=== PATIENT | male | born 1950 | race Caucasian/White ===

== ENCOUNTER 2022-06-02 14:33 | Emergency (ER) | payer MEDICARE, OTHER ==
[~2022-06-02] VITALS: Ht 188 cm; Wt 84.1 kg
[2022-06-02 14:37] VITALS: BP 132/75
[2022-06-02 15:32] LABS: BASOPHILS % (AUTO) 0.8 % (0-1); EOSINOPHILS # (AUTO) 0.6 X10'3 (0-0.9); EOSINOPHILS % (AUTO) 11.4 % (0-6); HEMATOCRIT 39.2 % (42.0-52.0); HEMOGLOBIN 13.2 g/dl (14.0-17.9); LYMPHOCYTES # (AUTO) 1.3 X10'3 (1.1-4.8); MEAN CORPUSCULAR HGB CONC 33.8 g/dL (33.0-36.5); MEAN CORPUSCULAR VOLUME 94.8 FL (78-98); MEAN PLATELET VOLUME 7.2 FL (7.4-10.4); MONOCYTES # (AUTO) 0.4 X10'3 (0-0.9); MONOCYTES % (AUTO) 6.9 % (2-12); NEUTROPHILS # (AUTO) 3.1 X10'3 (1.8-7.7); NEUTROPHILS % (AUTO) 56.9 % (42-75); PLATELET COUNT 184 X10'3 (140-440); RED BLOOD COUNT 4.14 X10'6 (4.70-6.10); RED CELL DISTRIBUTION WIDTH 14.3 % (11.5-14.5); WHITE BLOOD COUNT 5.5 X10'3 (4.5-11.0)
[2022-06-02 15:45] LABS: ALANINE AMINOTRANSFERASE 10 U/L (12-78); ALBUMIN 3.6 G/DL (3.4-5.0); ALBUMIN/GLOBULIN RATIO 1.1 (1.1-1.5); ALKALINE PHOSPHATASE 106 IU/L (46-116); ANION GAP 6 (8-16); ASPARTATE AMINO TRANSFERASE 22 U/L (10-37); BILIRUBIN,TOTAL 0.5 MG/DL (0.1-1.0); BLOOD UREA NITROGEN 28 MG/DL (7-18); BUN/CREATININE RATIO 27.5 (5.4-32.0); CALCIUM 8.7 MG/DL (8.5-10.1); CHLORIDE 108 MMOL/L (99-107); CREATININE 1.02 MG/DL (0.60-1.10); GLUCOSE 120 MG/DL (70-104); POTASSIUM 4.1 MMOL/L (3.5-5.1); SODIUM 140 MMOL/L (135-145); TOTAL CARBON DIOXIDE 25.9 MMOL/L (24-32); TOTAL PROTEIN 6.8 G/DL (6.4-8.2); eGFR 72 ML/MIN
[2022-06-02] MEDS ORDERED: CYCL-392 PO (17:28)
[2022-06-02] MEDS ORDERED: HYDR-3965 PO (17:28)
[2022-06-02] MEDS ORDERED: HYDROcodone/acetaminophen 5mg/325mg tablet PO ONE (17:35)
[2022-06-02] MEDS ORDERED: cyclobenzaprine 10mg tablet PO ONE (17:35)
== END 2022-06-02 17:58 | disposition home or self-care (01) ==
LOC: ER 14:34
DX: S39.012A Strain of muscle, fascia and tendon of lower back, initial encounter (principal); R42 Dizziness and giddiness; Z95.0 Presence of cardiac pacemaker; Z88.0 Allergy status to penicillin; Z79.899 Other long term (current) drug therapy; W19.XXXA Unspecified fall, initial encounter; Y93.89 Activity, other specified; Y92.89 Other specified places as the place of occurrence of the external cause; Y99.8 Other external cause status
CPT/HCPCS: 36415; 71045; 80053; 83880; 84484; 85025; 93005; 99285

== ENCOUNTER 2023-02-05 15:05 | Emergency (ER) | payer MEDICARE ==
[~2023-02-05] VITALS: Ht 188 cm; Wt 100.0 kg
[~2023-02-05 15:05] MED LIST: CYCL-392 PO
[2023-02-05] MEDS ORDERED: LIDOcaine 1% W/epiNEPHrine 1:100,000 20ml vial IJ ONE (15:35)
[2023-02-05] MEDS ORDERED: TETanus/Pertussis (Acell)/Diphther VAC/PF (Tdap-Adult) 0.5ml syringe IMVAC ONE (15:35)
--- NOTE | 2023-02-05 18:41 | NUR ---
ASSUMED CARE FROM [facility]
--- NOTE | 2023-02-05 19:11 | NUR ---
luciana at bedside, dr topete at bedside.
--- NOTE | 2023-02-05 19:13 | NUR ---
c-collar removed by dr topete.
[2023-02-05] MEDS ORDERED: HYDROcodone/acetaminophen 10/325mg tab PO ONE (19:15)
[2023-02-05 19:50] LABS: BASOPHILS % (AUTO) 0.5 % (0-1); EOSINOPHILS # (AUTO) 0.6 X10'3 (0-0.9); EOSINOPHILS % (AUTO) 6.5 % (0-6); HEMATOCRIT 43.2 % (42.0-52.0); HEMOGLOBIN 14.3 g/dl (14.0-17.9); LYMPHOCYTES # (AUTO) 1.7 X10'3 (1.1-4.8); LYMPHOCYTES % (AUTO) 19.2 % (21-51); MEAN CORPUSCULAR HEMOGLOBIN 31.5 PG (27.0-31.0); MEAN CORPUSCULAR HGB CONC 33.2 g/dL (33.0-36.5); MEAN CORPUSCULAR VOLUME 95.1 FL (78-98); MEAN PLATELET VOLUME 7.4 FL (7.4-10.4); MONOCYTES # (AUTO) 0.5 X10'3 (0-0.9); MONOCYTES % (AUTO) 5.8 % (2-12); NEUTROPHILS # (AUTO) 6.2 X10'3 (1.8-7.7); PLATELET COUNT 226 X10'3 (140-440); RED BLOOD COUNT 4.55 X10'6 (4.70-6.10); RED CELL DISTRIBUTION WIDTH 13.6 % (11.5-14.5); WHITE BLOOD COUNT 9.1 X10'3 (4.5-11.0)
[2023-02-05 19:52] LABS: GLUCOSE 108 MG/DL (70-104); POTASSIUM 4.2 MMOL/L (3.5-5.1); SODIUM 141 MMOL/L (135-145)
[2023-02-05 19:53] LABS: ALANINE AMINOTRANSFERASE 11 U/L (12-78); ALBUMIN 3.9 G/DL (3.4-5.0); ALBUMIN/GLOBULIN RATIO 1.2 (1.1-1.5); ALKALINE PHOSPHATASE 92 IU/L (46-116); ANION GAP 11 (8-16); ASPARTATE AMINO TRANSFERASE 22 U/L (10-37); BILIRUBIN,TOTAL 0.6 MG/DL (0.1-1.0); BLOOD UREA NITROGEN 22 MG/DL (7-18); BUN/CREATININE RATIO 18.2 (10.0-20.0); CALCIUM 8.9 MG/DL (8.5-10.1); CHLORIDE 106 MMOL/L (99-107); CREATININE 1.21 MG/DL (0.60-1.10); TOTAL CARBON DIOXIDE 23.8 MMOL/L (24-32); TOTAL PROTEIN 7.2 G/DL (6.4-8.2); eGFR 59 ML/MIN
[2023-02-05] MEDS ORDERED: OXYC-145 PO (20:00)
[2023-02-05 20:13] VITALS: BP 135/75
== END 2023-02-05 20:15 | disposition home or self-care (01) ==
LOC: ER 15:07
DX: S01.112A Laceration without foreign body of left eyelid and periocular area, initial encounter (principal); G20 Parkinson's disease; Z88.0 Allergy status to penicillin; W19.XXXA Unspecified fall, initial encounter; Y93.89 Activity, other specified; Y92.89 Other specified places as the place of occurrence of the external cause; Y99.8 Other external cause status
CPT/HCPCS: 12013; 36415; 70450; 72050; 72125; 80053; 85025; 90471; 90715; 99285; J7030; A6449

== ENCOUNTER 2024-04-07 08:45 | Emergency (ER) | payer MEDICARE ==
[~2024-04-07] VITALS: Ht 188 cm; Wt 91.6 kg
[~2024-04-07 08:45] MED LIST changes: +OXYC-145 PO
[2024-04-07] MEDS: silver sulfadiazine cream 400gm jar TP SCH (09:56)
[2024-04-07] MEDS: HYDROcodone/acetaminophen 10/325mg tab PO ONE (09:56)
[2024-04-07] MEDS: fluconazole 150mg tablet PO ONE (09:56)
[2024-04-07] MEDS ORDERED: HYDR-3964 PO (10:09)
[2024-04-07] MEDS ORDERED: SILV20CR13 TOP (10:09)
[2024-04-07] MEDS ORDERED: DIF150T PO (10:09)
[2024-04-07 10:36] LABS: BASOPHILS % (AUTO) 0.4 % (0-1); EOSINOPHILS # (AUTO) 0.4 X10'3 (0-0.9); HEMATOCRIT 38.4 % (42.0-52.0); HEMOGLOBIN 12.8 g/dl (14.0-17.9); LYMPHOCYTES # (AUTO) 0.9 X10'3 (1.1-4.8); LYMPHOCYTES % (AUTO) 11.8 % (21-51); MEAN CORPUSCULAR HEMOGLOBIN 31.9 PG (27.0-31.0); MEAN CORPUSCULAR HGB CONC 33.4 g/dL (33.0-36.5); MEAN CORPUSCULAR VOLUME 95.4 FL (78-98); MEAN PLATELET VOLUME 7.3 FL (7.4-10.4); MONOCYTES # (AUTO) 0.6 X10'3 (0-0.9); MONOCYTES % (AUTO) 7.6 % (2-12); NEUTROPHILS # (AUTO) 5.5 X10'3 (1.8-7.7); NEUTROPHILS % (AUTO) 74.2 % (42-75); PLATELET COUNT 227 X10'3 (140-440); RED BLOOD COUNT 4.02 X10'6 (4.70-6.10); RED CELL DISTRIBUTION WIDTH 13.6 % (11.5-14.5); WHITE BLOOD COUNT 7.4 X10'3 (4.5-11.0)
[2024-04-07 10:49] LABS: ALANINE AMINOTRANSFERASE 24 U/L (12-78); ALBUMIN 3.2 G/DL (3.4-5.0); ALBUMIN/GLOBULIN RATIO 0.9 (1.1-1.5); ALKALINE PHOSPHATASE 106 IU/L (46-116); ANION GAP 10 (8-16); ASPARTATE AMINO TRANSFERASE 21 U/L (10-37); BILIRUBIN,TOTAL 0.5 MG/DL (0.1-1.0); BLOOD UREA NITROGEN 23 MG/DL (7-18); BUN/CREATININE RATIO 24.7 (10.0-20.0); CALCIUM 8.7 MG/DL (8.5-10.1); CHLORIDE 106 MMOL/L (99-107); CREATININE 0.93 MG/DL (0.60-1.10); GLUCOSE 122 MG/DL (70-104); SODIUM 141 MMOL/L (135-145); TOTAL CARBON DIOXIDE 24.9 MMOL/L (24-32); TOTAL PROTEIN 6.9 G/DL (6.4-8.2); eCRCL 81 ML/MIN; eGFR 79 ML/MIN
[2024-04-07 11:08] VITALS: BP 126/70; PULSE 70; RESP 18; TEMP 97.8; O2SAT 99
== END 2024-04-07 11:10 | disposition home or self-care (01) ==
LOC: ER 08:45
DX: T21.6 Corrosion of second degree of trunk (principal); G20.A1 Parkinson's disease without dyskinesia, without mention of fluctuations; Z88.0 Allergy status to penicillin; Z79.899 Other long term (current) drug therapy; Z95.1 Presence of aortocoronary bypass graft; Z85.89 Personal history of malignant neoplasm of other organs and systems; Y93.89 Activity, other specified; Y92.89 Other specified places as the place of occurrence of the external cause; Y99.8 Other external cause status
CPT/HCPCS: 16000; 36415; 80053; 85025; 99284

== ENCOUNTER 2024-10-18 08:46 | Emergency (ER) | payer MEDICARE ==
[~2024-10-18] VITALS: Ht 188 cm; Wt 91.5 kg
[~2024-10-18 08:46] MED LIST changes: +HYDR-3964 PO; +SILV20CR13 TOP
[2024-10-18] MEDS: ibuprofen tablet 400 MG TABLET PO ONE (10:13)
[2024-10-18] MEDS: acetaminophen 325mg tablet PO STA (10:13)
[2024-10-18 11:51] VITALS: BP 130/98; PULSE 66; RESP 16; TEMP 97.8; O2SAT 98
== END 2024-10-18 11:53 | disposition home or self-care (01) ==
LOC: ER 08:46
DX: S63.632A Sprain of interphalangeal joint of right middle finger, initial encounter (principal); S70.12XA Contusion of left thigh, initial encounter; Z88.0 Allergy status to penicillin; Z95.0 Presence of cardiac pacemaker; W19.XXXA Unspecified fall, initial encounter; Y93.89 Activity, other specified; Y92.89 Other specified places as the place of occurrence of the external cause; Y99.8 Other external cause status
CPT/HCPCS: 73130; 73552; 99284

== ENCOUNTER 2025-04-25 13:05 | Emergency (ER) | payer MEDICARE ==
[~2025-04-25] VITALS: Ht 185.4 cm; Wt 89.3 kg
--- NOTE | 2025-04-25 13:16 | Physician Documentation ---
History of Present Illness ~ Stated Complaint: CONFUSION Primary Medical Doctor: brijesh nicole HPI 74-year-old male presents to the ED with a reported increase in parkinsonian symptoms. From his who cares for him. He is being treated when via neurologist for his symptoms. She reported these symptoms to the neurologist who advised him to come to the ER. Currently taking Bactrim for a soft tissue infection in his the left hand. He reports urinary frequency. Day of Onset: Apr 25, 2025 Medication Reconciliation Allergies: Coded Allergies: Penicillins (Unverified Allergy, Unknown, 10/18/24) Scheduled Silver Sulfadiazine (Silvadene), 1 APPLIC TOP Q12H Scheduled PRN Cyclobenzaprine HCl (Cyclobenzaprine HCl), 1 TAB PO TID PRN PRN for muscle spasms Hydrocodone Bit/Acetaminophen (Hydrocodon-Acetaminophen 5-325), 1 TAB PO Q12H PRN PRN for pain Oxycodone HCl/Acetaminophen (Percocet 5-325 mg Tablet), 1 TAB PO Q12H PRN PRN for pain Past Medical History Past Medical History: Parkinson's Disease, *RENAL/*, BPH, *CANCER* Past Surgical History: pacemaker Alcohol Use: None Drug Use: none Lives with: Spouse Lives In: Home Occupation: disabled, retired Progress Results/Orders Results/Orders Orders - SALEEM TAYLOR [employer]TENA[employer]IT[employer] Monitor (04/25/25 13:17) 2 Large Bore Ivs (04/25/25 13:17) Electrocardiogram (04/25/25 13:17) Chest,Single View (04/25/25 13:17) Accucheck (04/25/25 13:17) Completed Orders - SALEEM TAYLOR [employer]TENA[employer] PIPEFITTER Cbc/Diff (04/25/25 13:17) Chest,Single View (04/25/25 13:17) BMP (04/25/25 13:17) PTT (04/25/25 13:17) Pt Inr (04/25/25 13:17) Medications Received in ER Medications (Trade) Dose Ordered Sig/Yamileth Route PRN Reason Start Time Stop Time Status Last Admin Dose Admin (Valium inj) 5 mg ONCE ONCE IV 04/25/25 14:45 04/25/25 14:50 DC 04/25/25 15:14 5 MG Vital Signs 9/904/25/25 04/25/25 04/25/25 13:12 14:20 14:23 15:14 Temp 97.7 97.7 Pulse 89 80 Resp 18 16 20 17 B/P (MAP) 157/75 124/75 (91) Pulse Ox 92 98 O2 Flow Rate 0 0 04/25/25 04/25/25 15:44 16:42 Temp 97.7 97.7 Pulse 75 79 Resp 15 17 B/P (MAP) 126/76 (93) 131/79 Pulse Ox 96 99 O2 Flow Rate 0 Laboratory Tests Test 04/25/25 13:29 04/25/25 13:33 04/25/25 13:34 White Blood Count 7.2 Red Blood Count 4.36 L Hemoglobin 13.7 L Hematocrit 40.7 L Mean Corpuscular Volume 93.4 Mean Corpuscular Hemoglobin 31.4 H Mean Corpuscular Hemoglobin Concent 33.6 Red Cell Distribution Width 14.0 Platelet Count 262 Mean Platelet Volume 7.1 L Neutrophils (%) (Auto) 54.0 Lymphocytes (%) (Auto) 27.8 Monocytes (%) (Auto) 6.3 Eosinophils (%) (Auto) 10.8 H Basophils (%) (Auto) 1.1 H Neutrophils # (Auto) 3.9 Lymphocytes # (Auto) 2.0 Monocytes # (Auto) 0.5 Eosinophils # (Auto) 0.8 Basophils # (Auto) 0.1 CBC Comment Prothrombin Time 10.0 INR International Normalized Ratio 1.0 Activated Partial Thromboplast Time 30 Coagulation Comments Sodium Level 140 Potassium Level 4.6 Chloride Level 107 Carbon Dioxide Level 23.6 L Anion Gap 9 Blood Urea Nitrogen 27 H Creatinine 1.22 H Estimated GFR/1.73 m2 58 BUN/Creatinine Ratio 22.1 H Glucose Level 109 H Calcium Level 9.1 Albumin 3.6 Chemistry Comments Glucometer 119 H Urine Specimen Description Straight cath Urine Color Yellow Urine Clarity Clear Urine pH 6.0 Urine Specific [place] >=1.030 Urine Protein Negative Urine Glucose (UA) Negative Urine Ketones Negative Urine Occult Blood Negative Urine Nitrite Negative Urine Bilirubin Negative Urine Urobilinogen 0.2 Urine Leukocyte Esterase Negative Urine Culture Indicated Not ind Volume Urine Centrifuged 10 ml Urine Comment Departure Disposition: 01 HOME / SELF CARE / HOMELESS Impression: Primary Impression: Parkinsons disease Referrals: NO PRIMARY CARE PROVIDER (PCP) Signature Scribe Signature: g Attestation: Scribed for Lonnie Rosales MD by Saleem Burt NP . 04/25/25 18:16 SALEEM TAYLOR NP Apr 25, 2025 13:16
[2025-04-25 13:47] LABS: MEAN PLATELET VOLUME 7.1 FL (7.4-10.4); RED CELL DISTRIBUTION WIDTH 14.0 % (11.5-14.5)
--- NOTE | 2025-04-25 13:48 | RADIOLOGY REPORT ---
EXAM: DI CHEST,SINGLE VIEW Indication: Stroke Alert Technique: Single frontal view of the chest was obtained Comparison: CHEST,SINGLE VIEW on DOS: 06/02/22 FINDINGS: Lines and Tubes: Electrical devices project over the bilateral chest wall. Lungs: No focal consolidation. Pleura: No effusion. No pneumothorax. Cardiomediastinal contours: Unremarkable Bones: No acute osseous abnormality. IMPRESSION: No acute cardiopulmonary disease.
[2025-04-25 13:54] LABS: CREATININE 1.22 MG/DL (0.60-1.10); TOTAL CARBON DIOXIDE 23.6 MMOL/L (24-32); eCRCL 59 ML/MIN; eGFR 58 ML/MIN
[2025-04-25 13:55] LABS: LEUKOCYTE ESTERASE ,URINE NEGATIVE (Neg); NITRITES, URINE NEGATIVE (Neg); OCCULT BLOOD,URINE NEGATIVE (Neg)
[2025-04-25 13:56] LABS: UA COLLECTION TYPE STRAIGHT CATH
[2025-04-25 14:00] LABS: APTT 30 SECONDS (22-32); INR 1.0 INR
--- NOTE | 2025-04-25 14:52 | Physician Documentation ---
History of Present Illness General Chief Complaint: Confused Stated Complaint: CONFUSION Time Seen by MD: 14:26 Primary Medical Doctor: brijesh nicole Mode of Arrival: Dropped Off History of Present Illness Initial Comments 74-year-old male presents to the ED with a reported increase in parkinsonian symptoms. From his who cares for him. He is being treated when via neurologist for his symptoms. She reported these symptoms to the neurologist who advised him to come to the ER. Currently taking Bactrim for a soft tissue infection in his the left hand. He reports urinary frequency. Patient's reports personality changes and altered mental status, especially at night. Medication Reconciliation Allergies: Coded Allergies: Penicillins (Unverified Allergy, Unknown, 10/18/24) Scheduled Silver Sulfadiazine (Silvadene), 1 APPLIC TOP Q12H Scheduled PRN Cyclobenzaprine HCl (Cyclobenzaprine HCl), 1 TAB PO TID PRN PRN for muscle spasms Hydrocodone Bit/Acetaminophen (Hydrocodon-Acetaminophen 5-325), 1 TAB PO Q12H PRN PRN for pain Oxycodone HCl/Acetaminophen (Percocet 5-325 mg Tablet), 1 TAB PO Q12H PRN PRN for pain Past Medical History Past Medical History: Parkinson's Disease, *RENAL/*, BPH, *CANCER* Past Surgical History: pacemaker Alcohol Use: None Drug Use: none Lives with: Spouse Lives In: Home Occupation: disabled, retired Review of Systems ROS Constitutional: Denies chills, fatigue, fever, weight gain or weight loss. HEENT: Denies hearing loss, sinus pressure or visual changes. Respiratory: Denies cough, shortness of breath or wheezing. Cardiovascular: Denies chest pain, pain while walking (claudication), edema or palpitations. Gastrointestinal: Denies abdominal pain, blood in stool, constipation, diarrhea, heartburn, loss of appetite, nausea or vomiting. Genitourinary: Denies painful urination (dysuria), excessive amount of urine (polyuria) or urinary frequency. Metabolic/Endocrine: Denies cold intolerance, heat intolerance, excessive thirst (polydipsia) or excessive hunger (polyphagia). Neurological: Denies dizziness, extremity numbness, extremity weakness, headaches, seizures or tremors. Psychiatric: Denies anxiety or depression. Integumentary: Denies breast discharge, breast lump, hives, mole change(s), rash or skin lesion. Musculoskeletal: Denies back pain, joint pain, joint swelling or neck pain. Hematologic: Denies easily bleeding, easily bruises, lymphedema or issues with blood clots. Immunologic: Denies food allergies or seasonal allergies. Physical Exam Physical Exam Vital Signs: Temperature: 97.7, Source: Oral, Heart Rate: 80, Respiratory Rate: 20, BP: 124/75, Pulse Oximetry: 98, Weight: 89.300 Oxygen Flow Rate: 0 Physical Exam Physical Exam Vitals and nursing note reviewed. Constitutional: General: Patient is awake, alert, oriented x 4 in no acute distress and well appearing. Speech is clear and lucid. Appearance: Normal appearance, left sided parkinsonian tremor. Patient is not ill-appearing, toxic-appearing or diaphoretic. HENT: Head: Normocephalic and atraumatic. Mouth/Throat: Mouth: Mucous membranes are moist. Pharynx: Oropharynx is clear. Eyes: General: No scleral icterus. Extraocular Movements: Extraocular movements intact. Pupils: Pupils are equal, round, and reactive to light. Neck: Supple, no Kernig or Brudzinski sign. Cardiovascular: Rate and Rhythm: Normal rate and regular rhythm. Heart sounds: No murmur heard. Pulmonary: Effort: No respiratory distress. Breath sounds: No wheezing, rhonchi or rales. Abdominal: General: There is no distension. Palpations: There is no fluid wave, hepatomegaly or mass. Tenderness: There is no abdominal tenderness. There is no guarding. Musculoskeletal: General: No swelling or deformity. Skin: Coloration: Skin is not jaundiced. Findings: No erythema or rash. Neurological: Mental Status: Patient is alert. Progress Results/Orders Results/Orders Orders - KOKI STINSON MD Ct Head (04/25/25 15:28) Completed Orders - KOKI STINSON MD Urinalysis, Cult If Indicated (04/25/25 13:43) Ct Head (04/25/25 15:28) Diazepam Inj (Valium Inj) (04/25/25 14:45) Medications Received in ER Medications (Trade) Dose Ordered Sig/Yamileth Route PRN Reason Start Time Stop Time Status Last Admin Dose Admin (Valium inj) 5 mg ONCE ONCE IV 04/25/25 14:45 04/25/25 14:50 DC 04/25/25 15:14 5 MG Vital Signs 04/25/25 04/25/25 04/25/25 04/25/25 13:12 14:20 14:23 15:14 Temp 97.7 97.7 Pulse 89 80 Resp 18 16 20 17 B/P (MAP) 157/75 124/75 (91) Pulse Ox 92 98 O2 Flow Rate 0 0 04/25/25 15:44 Temp 97.7 Pulse 75 Resp 15 B/P (MAP) 126/76 (93) Pulse Ox 96 O2 Flow Rate 0 Laboratory Tests Test 04/25/25 13:29 04/25/25 13:33 04/25/25 13:34 White Blood Count 7.2 Red Blood Count 4.36 L Hemoglobin 13.7 L Hematocrit 40.7 L Mean Corpuscular Volume 93.4 Mean Corpuscular Hemoglobin 31.4 H Mean Corpuscular Hemoglobin Concent 33.6 Red Cell Distribution Width 14.0 Platelet Count 262 Mean Platelet Volume 7.1 L Neutrophils (%) (Auto) 54.0 Lymphocytes (%) (Auto) 27.8 Monocytes (%) (Auto) 6.3 Eosinophils (%) (Auto) 10.8 H Basophils (%) (Auto) 1.1 H Neutrophils # (Auto) 3.9 Lymphocytes # (Auto) 2.0 Monocytes # (Auto) 0.5 Eosinophils # (Auto) 0.8 Basophils # (Auto) 0.1 CBC Comment Prothrombin Time 10.0 INR International Normalized Ratio 1.0 Activated Partial Thromboplast Time 30 Coagulation Comments Sodium Level 140 Potassium Level 4.6 Chloride Level 107 Carbon Dioxide Level 23.6 L Anion Gap 9 Blood Urea Nitrogen 27 H Creatinine 1.22 H Estimated GFR/1.73 m2 58 BUN/Creatinine Ratio 22.1 H Glucose Level 109 H Calcium Level 9.1 Albumin 3.6 Chemistry Comments Glucometer 119 H Urine Specimen Description Straight cath Urine Color Yellow Urine Clarity Clear Urine pH 6.0 Urine Specific [place] >=1.030 Urine Protein Negative Urine Glucose (UA) Negative Urine Ketones Negative Urine Occult Blood Negative Urine Nitrite Negative Urine Bilirubin Negative Urine Urobilinogen 0.2 Urine Leukocyte Esterase Negative Urine Culture Indicated Not ind Volume Urine Centrifuged 10 ml Urine Comment Medical Decision Making Findings This 74-year-old man with Parkinson's disease has been having worsening altered mental status, especially in the evenings. The patient's neurologist asked that he come to the emergency department to rule out other acute causes. The patient is urinalysis was normal, chest x-ray without acute findings, CBC unremarkable and electrolytes all within normal limits. A CT of his head showed no acute findings. I have discussed all of this with the patient and his and they would like to go home and contact the neurologist tomorrow for further advice and evaluation. I think this is reasonable. I am going to discharge the patient in stable condition. Departure Disposition: HOME / SELF CARE / HOMELESS Impression: Primary Impression: Altered mental status Additional Impression: Parkinsons disease Additional Impression Text Nighttime AMS Condition: Stable Additional Instructions: Please contact your neurologist tomorrow, as we discussed. In the meantime, do not hesitate to return here for worsening symptoms or new/unusual symptoms. Referrals: NO PRIMARY CARE PROVIDER (PCP) Education Educated: Patient, Family Educated regarding: diagnosis, need for follow up Signature Scribe Signature: . Attestation: . KOKI STINSON MD Apr 25, 2025 14:52
[2025-04-25] MEDS: diazepam inj 5 MG/ML inj. IV ONE (15:14)
--- NOTE | 2025-04-25 15:55 | RADIOLOGY REPORT ---
EXAM: CT CT HEAD INDICATION: AMS TECHNIQUE: CT images of the head were obtained without administration of IV contrast. CT scans at this facility use dose modulation, iterative reconstruction, and/or weight based dosing when appropriate to reduce radiation dose to as low as reasonably achievable. COMPARISON: CERVICAL SPINE CMPLT on DOS: 02/05/23 FINDINGS: PARENCHYMA: No acute hemorrhage. There is no mass effect, midline shift, or herniation. There is preservation of the pacheco white differentiation. Mild scattered hypoattenuation along the periventricular, centrum semiovale, and deep white matter tracts, which are nonspecific however statistically most likely represent chronic microvascular ischemic change. bilateral frontal approach deep brain stimulator leads. VENTRICLES: No hydrocephalus. EXTRA-AXIAL SPACES: No extra-axial fluid collections. OTHER: The bony structures are intact. Visualized portions of the paranasal sinuses and mastoid air cells are clear. IMPRESSION: 1. No CT evidence of an acute intracranial abnormality.
[2025-04-25 16:42] VITALS: BP 131/79; PULSE 79; RESP 17; TEMP 97.7; O2SAT 99
== END 2025-04-25 16:46 | disposition home or self-care (01) ==
LOC: ER 13:06
DX: G20.A1 Parkinson's disease without dyskinesia, without mention of fluctuations (principal); R06.02 Shortness of breath; Z88.0 Allergy status to penicillin; Z95.0 Presence of cardiac pacemaker
CPT/HCPCS: 36415; 70450; 71045; 80048; 81003; 82948; 85025; 85610; 85730; 96374; 99285; A4615; J3360